=== PATIENT | male | born 1955 | race Caucasian/White ===

== ENCOUNTER 2017-06-15 20:45 | Emergency (ER) | payer BC ==
[~2017-06-15] VITALS: Ht 180.3 cm; Wt 113.4 kg
[~2017-06-15 20:45] MED LIST: LISINOPRIL PO; OTC ANTACID; ZOCOR PO
[2017-06-15] MEDS ORDERED: METFORMIN PO (21:02)
[2017-06-15] MEDS ORDERED: GLYNASE PO (21:03)
[2017-06-15] MEDS ORDERED: COZAAR PO (21:03)
== END 2017-06-15 22:36 | disposition home or self-care (01) ==
LOC: SED 20:45
DX: T78.1XXA Other adverse food reactions, not elsewhere classified, initial encounter (principal); E11.9 Type 2 diabetes mellitus without complications; I10 Essential (primary) hypertension; Z79.84 Long term (current) use of oral hypoglycemic drugs; Z79.899 Other long term (current) drug therapy
CPT/HCPCS: 96361; 96374; 99282